=== PATIENT | male | born 1965 | race Caucasian/White ===

== ENCOUNTER 2018-02-03 19:30 | Emergency (ER) | payer BC, OTHER ==
[~2018-02-03] VITALS: Ht 165.1 cm; Wt 64.0 kg
[2018-02-03] MEDS ORDERED: CEFAZOLIN PMX 2GM/50ML 50 ML IV ONE (20:30)
[2018-02-03] MEDS ORDERED: DIPH,PERTUSS(ACELL),TET VAC/PF 0.5 ML IM-VACC ONE ×2 (20:30→20:51)
[2018-02-03] MEDS ORDERED: HYDROmorphone 1 MG/ML, 1ML IVPush PRN (20:30)
[2018-02-03] MEDS ORDERED: SODIUM CHLORIDE FLUSH 10ML SYR IVF ONE (20:30)
[2018-02-03] MEDS ORDERED: ONDANSETRON 2MG/ML, 2ML IVPush ONE (20:30)
[2018-02-03] MEDS ORDERED: ONDANSETRON ODT 4 MG ONE (20:47)
[2018-02-03] MEDS ORDERED: HYDROmorphone 2 MG/ML, 1ML ONE (20:48)
[2018-02-03] MEDS ORDERED: CEFAZOLIN 2,000 MG in SODIUM CHLORIDE 0.9% 50 ML IVPB ONE (21:00)
[2018-02-03] MEDS ORDERED: LIDOCAINE-MPF 2%, 2ML ONE ×2 (21:25→22:58)
[2018-02-03] MEDS ORDERED: ONDANSETRON ODT 4 MG PO ONE (21:30)
[2018-02-03] MEDS ORDERED: LIDOCAINE-MPF 2%, 2ML INFIL ONE (22:00)
[2018-02-04 00:51] VITALS: BP 127/76
== END 2018-02-04 00:54 | disposition home or self-care (01) ==
LOC: ED 22:20
DX: S51.822A Laceration with foreign body of left forearm, initial encounter (principal); Z87.891 Personal history of nicotine dependence; W22.8XXA Striking against or struck by other objects, initial encounter; Y93.55 Activity, bike riding; Y92.410 Unspecified street and highway as the place of occurrence of the external cause; Y99.8 Other external cause status
CPT/HCPCS: 13121; 13122; 73060; 73090; 90471; 90715; 96365; 96375; 99285; J1170; Q0162